=== PATIENT | female | born 1975 | race Caucasian/White ===

== ENCOUNTER 2020-11-17 14:07 | Emergency (ER) | payer OTHER ==
[2020-11-17 15:56] LABS: HEMOGLOBIN 15.2 gm/dl (12.3-15.3); RED BLOOD COUNT 5.31 M/UL (4.00-5.10); WHITE BLOOD COUNT 9.7 K/UL (4.5-11.0)
[2020-11-17 16:41] LABS: BUN/CREATININE RATIO 9 (0-10)
[2020-11-17] MEDS ORDERED: K-DUR TAB 10 M10 MEQ PO (20:01)
== END 2020-11-17 20:09 | disposition home or self-care (01) ==
LOC: ER1 14:07
PROVIDERS: Family Medicine; Physician Assistant
DX: R55 Syncope and collapse (principal); S22.058A Other fracture of T5-T6 vertebra, initial encounter for closed fracture; S00.83XA Contusion of other part of head, initial encounter; E87.6 Hypokalemia; F31.9 Bipolar disorder, unspecified; G43.909 Migraine, unspecified, not intractable, without status migrainosus; D64.9 Anemia, unspecified; X58.XXXA Exposure to other specified factors, initial encounter
CPT/HCPCS: 70450; 72128; 80053; 80307; 81001; 82550; 82553; 83874; 84484; 84703; 85025; 85379; 93005; 96372; 96374; 96375; 99284; Q9967

== ENCOUNTER 2022-01-19 22:36 | Emergency (ER) | payer OTHER ==
[~2022-01-19 22:36] MED LIST: K-DUR TAB 10 M10 MEQ PO
[2022-01-19 23:39] LABS: HEMOGLOBIN 10.6 gm/dl (12.3-15.3); RED BLOOD COUNT 3.83 M/UL (4.00-5.10); WHITE BLOOD COUNT 8.2 K/UL (4.5-11.0)
[2022-01-19 23:59] LABS: BUN/CREATININE RATIO 24 (0-10)
== END 2022-01-20 02:00 | disposition left against medical advice (07) ==
LOC: ER1 22:36
PROVIDERS: Nurse Practitioner
DX: R41.82 Altered mental status, unspecified (principal); Z20.822 Contact with and (suspected) exposure to COVID-19
CPT/HCPCS: 0240U; 70450; 71045; 80053; 80076; 80307; 81001; 82140; 82150; 82550; 82553; 83690; 84484; 85025; 87040; 99283